=== PATIENT | male | born 1955 | race Caucasian/White ===

== ENCOUNTER → 2016-06-15 | Outpatient (CLI) | payer MEDICAID, MEDICARE ==
[2016-06-15 09:52] LABS: CALCIUM 9.6 mg/dL (8.5-10.1); CREATININE 1.4 mg/dL (0.7-1.3); GFR 51.5; POTASSIUM 3.9 mmol/L (3.5-5.1)
[2016-06-16 04:13] LABS: HEMOGLOBIN A1C 7.6 % (4.8-5.6)
== END | disposition home or self-care (01) ==
LOC: LAB 09:08
PROVIDERS: ATTEND Family Medicine
DX: E11.9 Type 2 diabetes mellitus without complications (principal)
CPT/HCPCS: 36415; 80048; 83036

== ENCOUNTER → 2017-02-18 | Outpatient (CLI) | payer MEDICAID, MEDICARE ==
[2017-02-18 13:25] LABS: BASO # 0.1 x10^3/uL (0.0-0.2); BASO % 1 % (0-3); EOS # 0.3 x10^3/uL (0.0-0.7); EOS % 5 % (0-3); HEMATOCRIT 44.4 % (39.0-53.0); HEMOGLOBIN 15.1 g/dL (13.0-17.5); LYMPH # 1.8 x10^3/uL (1.0-4.8); LYMPH % 26 % (24-48); MEAN CORPUSCULAR HEMOGLOBIN 29 pg (25-35); MEAN CORPUSCULAR HGB CONC 34 g/dL (31-37); MEAN CORPUSCULAR VOLUME 86 fL (79-100); MONO # 0.5 x10^3/uL (0.0-1.1); MONO % 8 % (0-9); NEUT # 4.2 x10^3uL (1.8-7.7); NEUT % 60 % (31-73); PLATELET COUNT 208 x10^3/uL (140-400); RED BLOOD COUNT 5.17 x10^6/uL (4.30-5.70); RED CELL DISTRIBUTION WIDTH 13.5 % (11.5-14.5)
[2017-02-18 13:32] LABS: ALBUMIN 3.6 g/dL (3.4-5.0); CALCIUM 9.3 mg/dL (8.5-10.1); CREATININE 1.3 mg/dL (0.7-1.3); DIRECT BILIRUBIN 0.1 mg/dL (0.0-0.2); GFR 55.9; POTASSIUM 3.9 mmol/L (3.5-5.1); TOTAL BILIRUBIN 0.4 mg/dL (0.2-1.0); TOTAL PROTEIN 7.2 g/dL (6.4-8.2)
[2017-02-18 15:54] LABS: BACTERIA,URINE 0 /HPF (0-FEW); BILIRUBIN,URINE NEG (NEG); CLARITY,URINE CLEAR; COLOR,URINE STRAW; GLUCOSE,URINE >=1000 mg/dL (NEG); NITRITE,URINE NEG (NEG); RBC,URINE RARE /HPF (0-2); SQUAMOUS EPITHELIAL CELL,UR FEW /LPF; UROBILINOGEN,URINE 0.2 mg/dL (0.2 mg/dL); WBC,URINE OCC /HPF (0-4)
[2017-02-18 22:16] LABS: % EOS 5 % (0-5); % LYMPHS 20 % (24-48); % MONOS 6 % (0-10); % SEGS 64 % (35-66)
[2017-02-18 22:24] LABS: PLT ESTIMATE ADEQUATE (ADEQUATE)
[2017-02-18 22:28] LABS: % ATYL 5 % (0-0)
[2017-02-19 06:09] LABS: HEMOGLOBIN A1C 8.1 % (4.8-5.6)
== END | disposition home or self-care (01) ==
LOC: LAB 11:53
PROVIDERS: ATTEND Family Medicine
DX: E11.9 Type 2 diabetes mellitus without complications (principal); I10 Essential (primary) hypertension; N40.0 Benign prostatic hyperplasia without lower urinary tract symptoms; D72.819 Decreased white blood cell count, unspecified; E78.5 Hyperlipidemia, unspecified; E16.2 Hypoglycemia, unspecified; R94.5 Abnormal results of liver function studies
CPT/HCPCS: 36415; 80048; 80061; 80076; 81001; 82043; 83036; 84443; 85007; 85025; G0103

== ENCOUNTER 2017-12-24 18:17 | Emergency (ER) | payer MEDICARE ==
[~2017-12-24] VITALS: Ht 180.3 cm; Wt 102.5 kg
--- NOTE | 2017-12-24 18:35 | PHYS DOC ---
Adult General Chief Complaint Chief Complaint: RIB PAIN HPI HPI is a 61-year-old male who presents with complaint of left-sided rib pain after he injured himself playing football with his daughter. Patient states that he had fallen and had landed in a funny way with his left elbow projecting into his left anterior lower rib margin. He denies any other injuries. He states that injury occurred at about 5 PM. He states that initially his pain was a 12 out of 10 but after he was given fentanyl by the medics, he states that his pain is now 5 out of 10. He denies having had any nausea or vomiting. He denies loss of consciousness, head or neck pain. Patient states that pain is worsened with deep breathing. Review of Systems Review of Systems Constitutional: Denies fever or chills [] Respiratory: Denies cough or shortness of breath [] Cardiovascular: Positive anterior chest wall pain[] GI: Denies abdominal pain, nausea, vomiting [] Musculoskeletal: Denies back pain or joint pain [] Integument: Denies rash or skin lesions [] All other systems were reviewed and found to be within normal limits, except as documented in this note. Physical Exam Physical Exam Constitutional: Well developed, well nourished, no acute distress, non-toxic appearance. [] HENT: Normocephalic, atraumatic. [] Eyes: PERRLA, EOMI, conjunctiva normal, no discharge. [] Neck: Normal range of motion, no tenderness, supple. [] Cardiovascular:Heart rate regular rhythm. There is left lower anterior chest wall tenderness/rib tenderness. [] Lungs & Thorax: Bilateral breath sounds clear to auscultation [] Abdomen: Bowel sounds normal, soft, no tenderness. [] Skin: Warm, dry, no erythema, no rash. [] Extremities: No tenderness, no cyanosis, no clubbing, ROM intact, no edema. [] Neurologic: Alert and oriented X 3, no focal deficits noted. [] EKG EKG [] Radiology/Procedures Radiology/Procedures [] Impressions: Rib series x-rays demonstrate no acute bony abnormalities and no pneumothorax. Course & Med Decision Making Course & Med Decision Making Pertinent Labs and Imaging studies reviewed. (See chart for details) [] Dragon Disclaimer Dragon Disclaimer This electronic medical record was generated, in whole or in part, using a voice recognition dictation system. Departure Departure: Impression: Primary Impression: Contusion of rib on left side Disposition: HOME, SELF-CARE Condition: STABLE Referrals: ANTONINA ENRIQUEZ (PCP) Patient Instructions: Rib Contusion Scripts Diclofenac Sodium (DICLOFENAC SODIUM) 50 Mg Tablet.dr 1 TAB PO BID PRN for PAIN, #20 TAB Prov: MARC LAUREN Jr. DO 12/24/17 Tramadol Hcl (TRAMADOL HCL) 50 Mg Tablet 50 MG PO PRN Q6HRS PRN for PAIN, #15 TAB Prov: MARC LAUREN Jr. DO 12/24/17 Problem Qualifiers Primary Impression: Contusion of rib on left side Encounter type: initial encounter Qualified Codes: S20.212A - Contusion of left front wall of thorax, initial encounter MARC LAUREN Jr. DO Dec 24, 2017 18:35
--- NOTE | 2017-12-24 19:24 | RAD ---
Left RIBS with PA chest. HISTORY: Injured playing football AP view was taken of the chest. There is atelectasis in the right lung base. The patient's taken a poor inspiration. There is no pneumothorax or pleural effusion. AP and oblique views were taken of the left ribs. A rib fracture was not identified. IMPRESSION: 1. Poor inspiration. 2. Right lung base linear atelectasis. 3. No pneumothorax or pleural effusion. 4. No rib fracture noted. Electronically signed by: Andrea Khan MD (12/24/2017 7:21 PM) [facility]
[2017-12-24] MEDS ORDERED: DICL50TA4 PO (19:36)
[2017-12-24] MEDS ORDERED: TRAM50TA PO (19:36)
[2017-12-24 19:40] VITALS: BP 166/85
[2017-12-24] MEDS: KETOROLAC 30 MG/ML VIAL. IV ONE (19:53)
[2017-12-24] MEDS: START PACK - traMADol 1 STARTPACK TABLET PO ONE (19:54)
== END 2017-12-24 20:00 | disposition home or self-care (01) ==
LOC: ER 18:17
DX: S20.212A Contusion of left front wall of thorax, initial encounter (principal); W18.30XA Fall on same level, unspecified, initial encounter; Y93.61 Activity, american tackle football; Y92.89 Other specified places as the place of occurrence of the external cause; Y99.8 Other external cause status
CPT/HCPCS: 71101; 96374; 99284; J1885

== ENCOUNTER → 2018-07-27 | Outpatient (CLI) | payer MEDICARE ==
[~2018-07-27] MED LIST: DICL50TA4 PO; TRAM50TA PO
== END | disposition home or self-care (01) ==
LOC: LAB 11:07
PROVIDERS: ATTEND Family Medicine
DX: E78.5 Hyperlipidemia, unspecified (principal)
CPT/HCPCS: 80061; 86705; 86709; 86803; 87340

== ENCOUNTER → 2018-09-01 | Outpatient (CLI) | payer MEDICARE ==
--- NOTE | 2018-09-01 13:38 | RAD ---
Indication: Peripheral arterial disease TECHNIQUE: Grayscale, color Doppler and spectral waveform images of the bilateral lower extremity arteries COMPARISON: None FINDINGS: Right-sided: Triphasic waveform in the DRY CURER with velocity of 96 cm/s. Biphasic waveform in the deep femoral artery with velocity of 55 cm/s. Triphasic waveforms in the proximal SFA with velocity of 66 cm/s. Triphasic waveforms in the mid SFA with velocity of 89 cm/s. Triphasic waveforms in the distal SFA with velocity of 76 cm/s. Triphasic waveforms in the popliteal artery with velocity of 119 cm/s. Biphasic waveforms in the proximal [employer] with velocity of 96 cm/s. Triphasic waveforms in the distal [employer] with velocity of 113 cm/s. Triphasic waveforms in the peroneal artery with velocity of 87 cm/s. Biphasic waveforms in the anterior tibial artery with velocity of 39 cm/s. Biphasic waveforms in the dorsalis pedis artery with velocity of 28 cm/s. Left side: Triphasic waveform in the DRY CURER with velocity of 134 cm/s. Biphasic waveform in the deep femoral artery with velocity of 51 cm/s. Triphasic waveforms in the proximal SFA with velocity of 103 cm/s. Triphasic waveforms in the mid SFA with velocity of 97 cm/s. Triphasic waveforms in the distal SFA with velocity of 100 cm/s. Triphasic waveforms in the popliteal artery with velocity of 147 cm/s. Biphasic waveforms in the proximal [employer] with velocity of 90 cm/s. Triphasic waveforms in the distal [employer] with velocity of 109 cm/s. Triphasic waveforms in the peroneal artery with velocity of 95 cm/s. Biphasic waveforms in the anterior tibial artery with velocity of 38 cm/s. Monophasic waveforms in the dorsalis pedis artery with velocity of 26 cm/s. IMPRESSION: Patent bilateral lower activity arteries without focal increased velocity to suggest focal stenosis. 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 Electronically signed by: Stoney Mason DO (09/01/2018 1:36 PM) [facility]
--- NOTE | 2018-09-01 13:52 | RAD ---
KNEE LEFT 3V History: Left knee pain. Comparison: None. Findings: 3 views of the left knee. Mild left medial and patellofemoral compartment degenerative changes with joint space narrowing and marginal osteophyte formation. Small knee joint effusion. Chondrocalcinosis within the medial and lateral compartments. No fracture. Normal alignment. Soft tissues unremarkable. Linear soft tissue calcification within the soft tissues posterior to the proximal tibia. Impression: 1. 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 2. Chondrocalcinosis. Electronically signed by: Familia Mireles DO (09/01/2018 1:49 PM) [id number]
== END | disposition home or self-care (01) ==
LOC: US 11:05
PROVIDERS: ATTEND Family Medicine
DX: M11.262 Other chondrocalcinosis, left knee (principal); M17.12 Unilateral primary osteoarthritis, left knee; M25.762 Osteophyte, left knee; M25.462 Effusion, left knee; I73.9 Peripheral vascular disease, unspecified
CPT/HCPCS: 73562; 93925

== ENCOUNTER → 2019-09-28 | Outpatient (CLI) | payer MEDICARE ==
[2019-09-28 16:00] LABS: BASO # 0.1 x10^3/uL (0.0-0.2); BASO % 1 % (0-3); EOS # 0.2 x10^3/uL (0.0-0.7); EOS % 3 % (0-3); HEMATOCRIT 43.4 % (39.0-53.0); HEMOGLOBIN 14.6 g/dL (13.0-17.5); LYMPH # 1.8 x10^3/uL (1.0-4.8); LYMPH % 28 % (24-48); MEAN CORPUSCULAR HEMOGLOBIN 30 pg (25-35); MEAN CORPUSCULAR HGB CONC 34 g/dL (31-37); MEAN CORPUSCULAR VOLUME 89 fL (79-100); MONO # 0.5 x10^3/uL (0.0-1.1); MONO % 8 % (0-9); NEUT # 3.9 x10^3uL (1.8-7.7); NEUT % 60 % (31-73); PLATELET COUNT 180 x10^3/uL (140-400); RED BLOOD COUNT 4.91 x10^6/uL (4.30-5.70); RED CELL DISTRIBUTION WIDTH 13.7 % (11.5-14.5); WHITE BLOOD COUNT 6.6 x10^3/uL (4.0-11.0)
[2019-09-28 16:08] LABS: CALCIUM 9.7 mg/dL (8.5-10.1); CREATININE 1.4 mg/dL (0.7-1.3); POTASSIUM 3.4 mmol/L (3.5-5.1)
== END | disposition home or self-care (01) ==
LOC: LAB 15:18
PROVIDERS: ATTEND Physician Assistant Medical
DX: I10 Essential (primary) hypertension (principal); R07.9 Chest pain, unspecified
CPT/HCPCS: 36415; 80048; 85025